=== PATIENT | male | born 1970 | race Native Hawaiian/Other Pacific Islander ===

== ENCOUNTER 2019-05-14 17:38 | Emergency (ER) | payer OTHER ==
[~2019-05-14] VITALS: Ht 177.8 cm; Wt 74.8 kg
[2019-05-14 19:23] VITALS: BP 138/82; TEMP 99.7
== END 2019-05-14 19:23 | disposition home or self-care (01) ==
LOC: ED 17:38
DX: J02.9 Acute pharyngitis, unspecified (principal); J30.9 Allergic rhinitis, unspecified; J06.9 Acute upper respiratory infection, unspecified
CPT/HCPCS: 87502; 87651; 99283

== ENCOUNTER 2019-06-04 01:10 | Emergency (ER) | payer OTHER ==
[~2019-06-04] VITALS: Ht 177.8 cm; Wt 75.3 kg
[2019-06-04 02:33] VITALS: BP 121/72; TEMP 97.9
== END 2019-06-04 02:41 | disposition home or self-care (01) ==
LOC: ED 01:10
DX: K59.09 Other constipation (principal)
CPT/HCPCS: 99282

== ENCOUNTER 2019-10-14 11:44 | Emergency (ER) | payer OTHER ==
[~2019-10-14] VITALS: Ht 177.8 cm; Wt 72.6 kg
[2019-10-14 11:50] VITALS: BP 116/76; TEMP 98.9
== END 2019-10-14 12:38 | disposition home or self-care (01) ==
LOC: ED 11:44
PROC: 0HQ2XZZ Repair Right Ear Skin, External Approach (ICD-10-PCS; principal; 2019-10-14)
DX: S01.311A Laceration without foreign body of right ear, initial encounter (principal); W01.198A Fall on same level from slipping, tripping and stumbling with subsequent striking against other object, initial encounter; Y92.090 Kitchen in other non-institutional residence as the place of occurrence of the external cause
CPT/HCPCS: 90471; 90715; 99283

== ENCOUNTER 2019-10-21 13:20 | Emergency (ER) | payer OTHER ==
[~2019-10-21] VITALS: Ht 177.8 cm; Wt 77.1 kg
[2019-10-21 13:25] VITALS: TEMP 99.6
[2019-10-21 14:28] VITALS: BP 120/77
== END 2019-10-21 14:30 | disposition home or self-care (01) ==
LOC: ED 13:20
DX: Z48.02 Encounter for removal of sutures (principal)

== ENCOUNTER 2020-07-15 20:29 | Emergency (ER) | payer OTHER ==
[~2020-07-15] VITALS: Ht 177.8 cm; Wt 74.8 kg
[2020-07-15 21:00] VITALS: BP 118/73; TEMP 98.6
== END 2020-07-15 21:00 | disposition home or self-care (01) ==
LOC: ED 20:29
DX: B02.9 Zoster without complications (principal)
CPT/HCPCS: 99281

== ENCOUNTER 2021-09-25 16:32 | Observation (INO) | payer OTHER ==
[~2021-09-25] VITALS: Ht 177.8 cm; Wt 77.2 kg
[2021-09-25 16:32] VITALS: BP 115/59; TEMP 96.2
[2021-09-25 17:05] LABS: PLATELET COUNT 263 K/uL (142-355)
[2021-09-25 17:17] LABS: POTASSIUM 2.7 mmol/L (3.6-5.2)
[2021-09-25 19:30] VITALS: BP 125/75
[2021-09-25 20:30] VITALS: BP 118/71
[2021-09-25 21:30] VITALS: BP 103/67
[2021-09-25 22:00] VITALS: BP 114/75; TEMP 97.8
--- NOTE | 2021-09-25 22:30 | NUR ---
PT BROUGHT TO ROOM 1111 FROM ER VIA WHEELCHAIR, PT ALERT AND ORIENTED X4, DENIES ANY PAIN OR PROBLEMS AT THIS TIME. PT REPOSITIONED IN BED TO L SIDE, FEET AND L HAND ON PILLOWS, WILL MONITOR CLOSELY.
--- NOTE | 2021-09-26 00:08 | NUR ---
PT FOUND AWAKE SITTING UP IN BED WITH NO S/S OF ACUTE DISTRESS NOTED, DENIES ANY NEEDS OR PROBLEMS AT THIS TIME, RESP RATE NONLABORED IV 20 INTACT TO L AC. HUNG BAG OF NS TO INFUSE AT 200ML/HR, NO PROBLEMS NOTED, WILL MONITOR, RAILS UP, BED IN LOW POSITION, CALL LIGHT IN REACH, ENCOURAGED TO CALL NEEDED, PT ACKNOWLEDGES UNDERSTANDING.
--- NOTE | 2021-09-26 02:40 | NUR ---
PT RESTING IN BED IN POSITION OF COMFORT WITH EYES CLOSED, NO S/S OF PAIN OR DISTRESS NOTED, IV INTACT WITH FLUID ONGOING, RAILS UP, BED IN LOW POSITION, CALL LIGHT IN REACH.
[2021-09-26 03:30] VITALS: BP 114/75; TEMP 97.8; Ht 177.8 cm; Wt 77.2 kg
[2021-09-26 04:10] VITALS: BP 109/58; TEMP 98.1
--- NOTE | 2021-09-26 04:15 | NUR ---
RESTING IN POSITION OF COMFORT WITH EYES CLOSED, NO S/S OF PAIN OR DISTRESS NOTED, RESP RATE NONLABORED, ON ROOM AIR, 20G IV INTACT TO L AC WITH NS INFUSING AT 200ML/HR, REMAINS AT BEDSIDE WILL MONITOR, RAILS UP, BED IN LOW POSITION, CALL LIGHT IN REACH.
[2021-09-26 04:24] LABS: POTASSIUM 3.6 mmol/L (3.6-5.2)
[2021-09-26 04:45] LABS: PLATELET COUNT 194 K/uL (142-355)
--- NOTE | 2021-09-26 06:00 | NUR ---
CONTINUES TO REST IN BED WITH EYES CLOSED, NO S/S OF PAIN OR DISTRESS NOTED, IV INTACT WITH FLUID ONGOING, WILL MONITOR CLOSELY, RAILS UP, BED IN LOW POSITION, CALL LIGHT IN REACH.
--- NOTE | 2021-09-26 07:45 | NUR ---
PT AWAKE AND ALERT. DENIES ANY PAIN/DISCOMFORT. NO C/O N/V. IVF INFUSING ORDERED AT 200 ML/HR OF NS TO LAC. NO SWELLING/REDNESS NOTED TO SITE. AT BEDSIDE. NAD NOTED. CONTINUE TO MONITOR.
[2021-09-26 08:23] VITALS: BP 102/65; TEMP 98.2
--- NOTE | 2021-09-26 09:54 | NUR ---
PT DISCHARGED HOME. DISCHARGE INSTRUCTIONS GIVEN TO PT AND AT BEDSIDE. VERBALIZED UNDERSTANDING. ALERT AND ORIENTED. IV SITE TO LAC D/C'D. NO C/O N/V OR ABD PAIN. NO PRESCRIPTIONS WRITTEN. TRANSPORTED OUT OF FACILITY VIA WHEELCHAIR AT 0948.
== END 2021-09-26 09:48 | disposition home or self-care (01) ==
LOC: ED 16:32 → MED/SURG 21:30
PROVIDERS: ADMIT Emergency Medicine; ATTEND Internal Medicine
DX: E87.6 Hypokalemia (principal); R11.2 Nausea with vomiting, unspecified; E86.0 Dehydration; K29.60 Other gastritis without bleeding
CPT/HCPCS: 36415; 80053; 80307; 81002; 82550; 83690; 84484; 85007; 85027; 87635; 93005; 96360; 96361; 96374; 96375; 96376; 99220; 99284; G0378; J2405; J3490; U0003

== ENCOUNTER 2021-12-22 16:40 | Outpatient (CLI) | payer OTHER ==
[2021-12-22 17:03] LABS: PLATELET COUNT 266 K/uL (142-355)
[2021-12-22 17:13] LABS: POTASSIUM 4.2 mmol/L (3.6-5.2)
== END 2021-12-22 19:02 | disposition home or self-care (01) ==
LOC: LABW 16:40
PROVIDERS: ATTEND Specialist
DX: I25.10 Atherosclerotic heart disease of native coronary artery without angina pectoris (principal)
CPT/HCPCS: 36415; 80048; 85027

== ENCOUNTER 2021-12-31 18:41 | Emergency (ER) | payer OTHER ==
[~2021-12-31] VITALS: Ht 177.8 cm; Wt 74.8 kg
[2021-12-31 23:35] VITALS: BP 124/80; TEMP 97.8
== END 2021-12-31 23:35 | disposition home or self-care (01) ==
LOC: ED 19:39
DX: M25.512 Pain in left shoulder (principal); S16.1XXA Strain of muscle, fascia and tendon at neck level, initial encounter; V49.40XA Driver injured in collision with unspecified motor vehicles in traffic accident, initial encounter; Y92.89 Other specified places as the place of occurrence of the external cause; Z98.890 Other specified postprocedural states
CPT/HCPCS: 96365; 99284; J2550

== ENCOUNTER 2022-05-15 13:12 | Emergency (ER) | payer OTHER ==
[~2022-05-15] VITALS: Ht 177.8 cm; Wt 77.1 kg
[2022-05-15 13:20] VITALS: BP 122/42; TEMP 98.1
== END 2022-05-15 13:54 | disposition home or self-care (01) ==
LOC: ED 13:12
DX: G43.909 Migraine, unspecified, not intractable, without status migrainosus (principal)
CPT/HCPCS: 99282; J1885; J2550